=== PATIENT | male | born 1980 ===

== ENCOUNTER 2025-01-05 17:17 | Inpatient (IN) | payer OTHER ==
[~2025-01-05] VITALS: Ht 170.2 cm; Wt 81.4 kg
[2025-01-05 17:41] LABS: BASOPHILS % (AUTO) 0.7 % (0.0-2.0); EOSINOPHILS % (AUTO) 1.6 % (1.0-6.0); HEMATOCRIT 49.4 % (41-53); HEMOGLOBIN 16.4 g/dL (13.5-17.5); LYMPHOCYTES # (AUTO) 1.5 K/uL (1.0-4.8); LYMPHOCYTES % (AUTO) 21.8 % (22.0-44.0); MEAN CORPUSCULAR HEMOGLOBIN 32.2 pg (26.0-34.0); MEAN CORPUSCULAR HGB CONC 33.3 G/dL (31.0-37.0); MEAN CORPUSCULAR VOLUME 97 fL (80-100); MONOCYTES # (AUTO) 0.3 K/uL (0.1-1.0); MONOCYTES % (AUTO) 4.7 % (2.0-9.0); NEUTROPHILS # (AUTO) 4.8 K/uL (1.8-7.7); NEUTROPHILS % (AUTO) 71.2 % (40.0-70.0); PLATELET COUNT (AUTO) 258 K/uL (150-450); RED BLOOD CELL COUNT(AUTO) 5.09 MIL/uL (4.50-5.90); RED CELL DISTRIBUTION WIDTH 13.9 % (11.5-14.5); WHITE BLOOD COUNT (AUTO) 6.7 K/uL (4.5-11.0)
[2025-01-05 17:47] LABS: ANION GAP 11 mmol/L (8-16); CALCIUM, TOTAL 8.7 mg/dL (8.8-10.5); CARBON DIOXIDE 28 mmol/L (22-29); CHLORIDE 104 mmol/L (98-107); CREATININE 0.95 mg/dL (0.60-1.30); GLOMERULAR FILTR. RATE CALC > 60 mL/min (>60); GLUCOSE,RANDOM 202 mg/dL (70-110); POTASSIUM 3.9 mmol/L (3.5-5.1); SODIUM SERUM 143 mmol/L (136-145); UREA NITROGEN, BLOOD 9 mg/dL (7-18)
[2025-01-05 17:50] LABS: GLUCOMETER DEV NAME(LOC) ER.7; GLUCOSE,POINT OF CARE 178 MG/DL (70-110)
[2025-01-05 17:53] LABS: ALBUMIN 4.3 g/dL (3.4-5.0); BILIRUBIN,DIRECT 0.1 mg/dL (0.00-0.20); BILIRUBIN,TOTAL 0.2 mg/dL (0.1-1.0)
[2025-01-05 17:55] LABS: B-TYPE NATRIURETIC PEPTIDE < 5 pg/mL (0-100)
[2025-01-05 17:58] LABS: ALCOHOL, BLOOD (SERUM) 478 mg/dL (0-10); CREATINE KINASE, TOTAL ONLY 230 U/L (39-308); TROPONIN I-HIGH SENSITIVITY 9 ng/L (<76)
[2025-01-05] MEDS ORDERED: ONDANSETRON HCL 4 MG/2 ML VIAL IVP PRN (20:00)
[2025-01-05] MEDS: DOCUSATE SODIUM 100 MG CAPSULE PO SCH (20:03)
[2025-01-05 21:10] LABS: APPEARANCE,URINE CLEAR (CLEAR); BILIRUBIN,URINE NEGATIVE (NEGATIVE); COLOR,URINE COLORLESS (YELLOW); GLUCOSE, URINE (UA) 70-100 mg/dL (NEGATIVE); KETONES,URINE TRACE mg/dL (NEGATIVE); LEUKOCYTE ESTERASE ,URINE NEGATIVE (NEGATIVE); NITRATE,URINE NEGATIVE (NEGATIVE); OCCULT BLOOD,URINE TRACE (NEGATIVE); PROTEIN,URINE 30-70 mg/dL (NEGATIVE); SPECIFIC GRAVITIY, URINE 1.008 (1.003-1.030); UROBILINOGEN,URINE <=1.0 mg/dL (<=1.0)
[2025-01-05 21:18] LABS: BACTERIA,URINE Rare /HPF (None Seen); SQUAMOUS EPITHELIAL CELL,UR Rare /LPF (None Seen); WBC,URINE 0-2 /HPF (0-5)
[2025-01-05 21:19] LABS: AMPHET/METH SCREEN,URINE NEGATIVE (NEGATIVE); BARBITURATE SCREEN, URINE NEGATIVE (NEGATIVE); BENZODIAZEPINES SCREEN,URINE NEGATIVE (NEGATIVE); CANNABINOID SCREEN,URINE NEGATIVE (NEGATIVE); COCAINE SCREEN,URINE NEGATIVE (NEGATIVE); METHADONE SCREEN, URINE NEGATIVE (NEGATIVE); OPIATE SCREEN,URINE NEGATIVE (NEGATIVE); PHENCYCLIDINE SCREEN,URINE NEGATIVE (NEGATIVE)
[2025-01-05 21:21] LABS: ALCOHOL, URINE DRUG SCREEN POSITIVE (NEGATIVE)
[2025-01-05] MEDS: NALOXONE HCL 1 MG/ML 2 ML SYRINGE IVP PRN (21:45)
[2025-01-05] MEDS: NALOXONE HCL 1 MG/ML 2 ML SYRINGE IVP SCH (22:00)
[2025-01-05] MEDS: ACETAMINOPHEN 325 MG TABLET PO PRN (23:40)
[2025-01-05] MEDS: HEPARIN SODIUM,PORCINE 5,000 UNITS/ML VIAL SQ SCH (23:42)
[2025-01-06] MEDS: 1: MAGNESIUM SULFATE 2 GM, MVI, ADULT NO.1 WITH VIT K 10 ML, THIAMINE 100 MG, FOLIC ACID IV SCH (02:51)
[2025-01-06 05:08] VITALS: BP 124/78; PULSE 108; RESP 18; TEMP 98.1; O2SAT 98
[2025-01-06] MEDS ORDERED: LORazepam 2 MG TABLET PO PRN ×2 (07:00)
[2025-01-06 07:42] LABS: ANION GAP 13 mmol/L (8-16); BASOPHILS % (AUTO) 0.8 % (0.0-2.0); CALCIUM, TOTAL 8.9 mg/dL (8.8-10.5); CARBON DIOXIDE 24 mmol/L (22-29); CHLORIDE 106 mmol/L (98-107); CREATININE 0.84 mg/dL (0.60-1.30); EOSINOPHILS % (AUTO) 1.2 % (1.0-6.0); GLOMERULAR FILTR. RATE CALC > 60 mL/min (>60); GLUCOSE,RANDOM 195 mg/dL (70-110); HEMATOCRIT 43.2 % (41-53); HEMOGLOBIN 14.6 g/dL (13.5-17.5); LYMPHOCYTES # (AUTO) 0.8 K/uL (1.0-4.8); LYMPHOCYTES % (AUTO) 15.4 % (22.0-44.0); MEAN CORPUSCULAR HEMOGLOBIN 32.4 pg (26.0-34.0); MEAN CORPUSCULAR HGB CONC 33.8 G/dL (31.0-37.0); MEAN CORPUSCULAR VOLUME 96 fL (80-100); MONOCYTES # (AUTO) 0.4 K/uL (0.1-1.0); NEUTROPHILS # (AUTO) 3.9 K/uL (1.8-7.7); NEUTROPHILS % (AUTO) 74.6 % (40.0-70.0); PLATELET COUNT (AUTO) 254 K/uL (150-450); POTASSIUM 3.8 mmol/L (3.5-5.1); SODIUM SERUM 143 mmol/L (136-145); UREA NITROGEN, BLOOD 11 mg/dL (7-18); WHITE BLOOD COUNT (AUTO) 5.3 K/uL (4.5-11.0)
[2025-01-06 08:30] VITALS: BP 124/82; PULSE 68; RESP 19; TEMP 97.8; O2SAT 94
[2025-01-06] MEDS: LORazepam 2 MG TABLET PO SCH (08:38)
[2025-01-06 12:00] VITALS: BP_SYST 131; BP_SYST 133; BP_DIAS 72; BP_DIAS 76; PULSE 78; PULSE 98; RESP 16; RESP 18; TEMP 97.5; TEMP 98.1; O2SAT 98
[2025-01-06] MEDS ORDERED: SODIUM CHLORIDE 0.9% 1,000 ML ONE (13:30)
[2025-01-06 14:59] VITALS: BP 126/78; PULSE 89; RESP 18; TEMP 98; O2SAT 98
[2025-01-06 20:00] VITALS: BP 118/82; PULSE 92; RESP 16; TEMP 98.4; O2SAT 98
[2025-01-06] MEDS ORDERED: DEXTROSE 50%-WATER 25 GM/50 ML SYRINGE IVP PRN (21:45)
[2025-01-07] VITALS (7 sets, daily range): BP systolic 113–124; BP diastolic 70–98; PULSE 78–92; RESP 18–20; TEMP 97.3–98.5; O2SAT 95–99
[2025-01-07] MEDS: INSULIN LISPRO 100 UNITS/ML SQ PRN (06:39)
[2025-01-07 06:50] LABS: GLUCOMETER DEV NAME(LOC) 5S.2D; GLUCOSE,POINT OF CARE 230 MG/DL (70-110)
[2025-01-07] MEDS: MetFORMIN HCL 500 MG TABLET PO SCH (08:46)
[2025-01-07] MEDS: LORazepam 2 MG/ML VIAL IVP PRN (17:14)
[2025-01-07 17:21] LABS: GLUCOMETER DEV NAME(LOC) 5S.2D; GLUCOSE,POINT OF CARE 267 MG/DL (70-110)
[2025-01-07 20:05] LABS: GLUCOMETER DEV NAME(LOC) 5S.2D; GLUCOSE,POINT OF CARE 250 MG/DL (70-110)
[2025-01-08] VITALS: BP 138/93; PULSE 82; RESP 18; TEMP 98.4; O2SAT 97
[2025-01-08 04:31] VITALS: BP 136/94; PULSE 76; RESP 18; TEMP 97.8; O2SAT 96
[2025-01-08 05:55] LABS: GLUCOMETER DEV NAME(LOC) 5N.1D; GLUCOSE,POINT OF CARE 232 MG/DL (70-110)
[2025-01-08] MEDS ORDERED: LORazepam 1 MG TABLET PO PRN (07:00)
[2025-01-08] MEDS ORDERED: LORazepam 1 MG TABLET PO SCH (09:00)
[2025-01-08 09:37] VITALS: BP 120/88; PULSE 76; RESP 18; TEMP 98.2; O2SAT 94
[2025-01-08 11:45] LABS: GLUCOMETER DEV NAME(LOC) 5N.1D; GLUCOSE,POINT OF CARE 208 MG/DL (70-110)
[2025-01-08 12:34] VITALS: BP 134/90; PULSE 82; RESP 18; TEMP 99.3; O2SAT 96
[2025-01-09] MEDS ORDERED: LORazepam 1 MG TABLET PO PRN (07:00)
== END 2025-01-08 15:40 | disposition home or self-care (01) | DRG 812 ==
LOC: EMS 17:17 → EDBD 20:40 → EDH 20:40 → 5S 23:03
PROVIDERS: ADMIT Internal Medicine; ATTEND Internal Medicine
DX: T40.2X1A Poisoning by other opioids, accidental (unintentional), initial encounter (principal); G92.9 Unspecified toxic encephalopathy; E11.9 Type 2 diabetes mellitus without complications; T51.8X1A Toxic effect of other alcohols, accidental (unintentional), initial encounter; R74.01 Elevation of levels of liver transaminase levels; F10.129 Alcohol abuse with intoxication, unspecified; F10.139 Alcohol abuse with withdrawal, unspecified; Y92.89 Other specified places as the place of occurrence of the external cause
CPT/HCPCS: 70450; 71045; 72125; 80048; 80076; 80307; 81001; 82550; 82962; 83036; 83735; 83880; 84484; 85025; 93005; 96374; 99285; G0480; J1644; J2060; J2310; J3411; J3475; J3490; J7030; 36415-L1; 36415-TC